=== PATIENT | male | born 2000 | race Caucasian/White ===

== ENCOUNTER 2025-02-17 17:31 | Emergency (ER) | payer OTHER, SELFPAY ==
[2025-02-17 17:42] VITALS: BP 133/92; PULSE 80; RESP 16; TEMP 36.8; O2SAT 98
--- NOTE | 2025-02-17 18:03 | ED.GENADULT ---
HPI - General Adult General Chief complaint: Eye Problems Stated complaint: R eye irritated Time Seen by Provider: 02/17/25 18:04 Source: patient, RN notes reviewed and old records reviewed Mode of arrival: ambulatory Limitations: no limitations History of Present Illness HPI narrative: 24-year-old male presents to the [facility] with a red irritated right eye that was matted shut this morning. No treatment prior to arrival Does not were contact lenses. States that his eyes just feel itchy, no pain. Related Data Allergies Allergy/AdvReac Type Severity Reaction Status Date / Time No Known Allergies Allergy Verified 02/17/25 17:44 Review of Systems Review of Systems: All systems reviewed & are unremarkable except as noted in HPI and below Constitutional: Constitutional: Reports no additional constitutional complaints Eyes: Eyes: Reports as per HPI ENT: Reports system reviewed and no additional complaints, except as documented Cardiovascular: Cardiovascular: Reports no additional cardiovascular complaints, Denies chest pain and Denies dyspnea Respiratory: Respiratory: Reports no additional respiratory complaints, Denies chest congestion, Denies cough and Denies dyspnea Musculoskeletal: Musculoskeletal: Reports no additional musculoskeletal complaints Integumentary/Breasts: Skin/Breast: Reports system reviewed and no additional complaints, except as docu PMFSH Comments At the time of my signature, I reviewed and agree with the nursing past medical, surgical, social, and family history. There is no relevant family history pertinent to the patient complaint. Exam Const: General: cooperative, healthy appearing, comfortable, no acute distress, well developed, alert and well nourished Nutritional Appearance: well nourished Orientation/consciousness: patient oriented x3 Limitations: no limitations HENMT: Head: normal to inspection Ears: hearing grossly normal bilaterally, external ears normal, TM's normal bilaterally, EAC's normal, mastoids normal and no periauricular adenopathy Mouth: Yes Normal oral and palatal mucosa present, Yes lip normal, Yes tongue normal and Yes moist mucous membranes Eyes: General: appearance normal, both eyes and all related structures Alignment and Position: alignment normal Eyelids: eyelid abnormality right lower eyelid lid margins crusty/scaly Conjunctivae: conjunctival abnormality right conjunctival injection and discharge Pupils: Equal, round and reactive pupils present Neck: Neck: normal visual inspection, full ROM, no lymphadenopathy and no meningeal signs Chest: Chest palpation & inspection: normal inspection of the chest Resp: Effort & Inspection: normal respiratory effort and able to speak in complete sentences Auscultation: clear to auscultation bilaterally, no crackles, no rales, no rhonchi and no wheezes Cardio: Rate: regular rate Skin: General skin exam: normal color and no rashes or lesions noted Neuro: General: patient oriented x3, gait normal, moves all extremities and no meningeal signs Cognition (Neuro): normal cognition Speech: normal speech Gait exam (Neuro): Normal gait present Extrem: General: normal to inspection, full ROM, capillary refill normal and normal gait Psych: Appearance: grossly normal and well kempt Mental Status: mental status grossly normal Speech and movement: Normal speech and movement present and Clear speech present Affect: normal affect Attitude: cooperative Course Course Level of Care: Express Care Visit Vital Signs Vital signs: Vital Signs Temperature 98.3 F 02/17/25 17:42 Pulse Rate 80 02/17/25 17:42 Respiratory Rate 16 02/17/25 17:42 Blood Pressure 133/92 H 02/17/25 17:42 Pulse Oximetry 98 02/17/25 17:42 Oxygen Delivery Room Air 02/17/25 17:42 Temperature 98.3 F 02/17/25 17:42 Pulse Rate 80 02/17/25 17:42 Respiratory Rate 16 02/17/25 17:42 Blood Pressure 133/92 H 02/17/25 17:42 Pulse Oximetry 98 02/17/25 17:42 Oxygen Delivery Room Air 02/17/25 17:42 Reviewed Medical Decision Making MDM Narrative Medical decision making narrative: Patient sitting comfortably in exam room. Nontoxic, vitals stable. Patient in no acute distress Patient presents with eye redness since this morning, has gradually increased to some clear discharge. Does not were contacts. No trauma. Describes it as being very itchy. Redness with it injected conjunctiva is noted. Patient is appropriate for outpatient treatment with close follow-up of conjunctivitis Discharge instructions reviewed with patient, as well as provided in writing per nursing staff. The instructions also include specific and strict return/GO TO THE ER as well as f/u information. All questions have been answered, and the patient deny any further questions with discharge and discharge plan. Some parts of this dictation were generated by voice recognition software and may contain typographical and/or grammatical inaccuracies. Differential Diagnosis Differential Diagnosis: Conjunctivitis, allergy, viral, bacterial, Medical Records Medical records reviewed: Yes I reviewed the external patient's medical records. Vital Signs Vital Signs: Vital Signs Temperature 98.3 F 02/17/25 17:42 Pulse Rate 80 02/17/25 17:42 Respiratory Rate 16 02/17/25 17:42 Blood Pressure 133/92 H 02/17/25 17:42 Pulse Oximetry 98 02/17/25 17:42 Oxygen Delivery Room Air 02/17/25 17:42 Temperature 98.3 F 02/17/25 17:42 Pulse Rate 80 02/17/25 17:42 Respiratory Rate 16 02/17/25 17:42 Blood Pressure 133/92 H 02/17/25 17:42 Pulse Oximetry 98 02/17/25 17:42 Oxygen Delivery Room Air 02/17/25 17:42 Reviewed Lab Data Lab results reviewed: Yes I reviewed the patient's lab results. Labs: Reviewed Critical Care Time Critical Care Time Critical Care Time: No Discharge Plan Discharge Clinical Impression: Acute conjunctivitis of right eye Patient Disposition: Home Condition: Stable Instructions: Conjunctivitis (ED) Additional Instructions: Apply a cool, damp compress to your affected eye. Be sure to use a clean cloth each time to avoid spreading the infection. Gently clean your eyes with wet cotton balls or pads to remove crusty buildup or irritating discharge. Use prescription eyedrops as prescribed Maintain good hygiene and only touch your eyes with freshly washed hands. You should follow-up with an eye doctor within the next 72 hours especially if symptoms continue For new or worsening symptoms please proceed to the emergency room [facility]: [place]- [phone] [facility] [phone] [facility] [phone] [place]: [place]- [phone] or [phone] [facility] [phone] [facility] [phone] [facility] [phone] [facility]- [phone] Patient Language: Congolese Prescriptions: New ofloxacin 0.3 % drops See Rx Instructions EACH EYE .COMPLEX Qty: 5 0RF Rx Instructions: put 1-2 drps into affected eye(s) every 2-4 h x 2 days, then 1-2 drps 4 times/day days 3-7 Follow-up/Referrals: UNKNOWN,DOCTOR [Primary Care Provider] Stand Alone Forms: Work/School Release IP Time of Disposition: 18:10
== END 2025-02-17 18:13 | disposition home or self-care (01) ==
PROVIDERS: Emergency Provider Nurse Practitioner
DX: H10.9 Unspecified conjunctivitis (principal)
CPT/HCPCS: 99203; G0463

== ENCOUNTER 2025-02-20 10:15 | Emergency (ER) | payer OTHER, SELFPAY ==
[2025-02-20 10:26] VITALS: BP 126/79; PULSE 65; RESP 16; TEMP 36.6; O2SAT 100
--- NOTE | 2025-02-20 11:05 | ED_ITS ---
HPI - Eye Problem General Chief complaint: Eye Problems Stated complaint: EYE REDNESS Time Seen by Provider: 02/20/25 10:18 Source: patient Mode of arrival: ambulatory Limitations: no limitations History of Present Illness HPI Narrative: Jeet is a 24-year-old male patient presenting to the clinic today with complaints of eye redness. He reports this morning he noticed his eyes were red and he has some discharge. He was seen on Monday and diagnosed with conjunctivitis and prescribed ofloxacin eyedrops. He does were glasses. States he had to call in to PT today and is needing a work note. Denies any eye pain or visual changes. Related Data Allergies Allergy/AdvReac Type Severity Reaction Status Date / Time No Known Allergies Allergy Verified 02/20/25 10:25 Review of Systems Review of Systems: Pertinent positives per HPI. Patient denies any fever, chills, rash, headache, visual changes, dizziness, cough, runny nose, sore throat, shortness of breath, chest pain, palpitations, nausea, vomiting, diarrhea, constipation, abdominal pain, or any urinary issues. PMFSH Comments At the time of my signature, I reviewed and agree with the nursing past medical, surgical, social, and family history. There is no relevant family history pertinent to the patient complaint. Exam Narrative: General: Well-developed, well nourished, in no apparent distress Head: Normocephalic, atraumatic Eyes: Pupils equally round and reactive to light bilaterally, EOM intact, sclera and conjunctive clear, no discharge, lids normal Ears: TMs intact and clear, ear canals clear, no drainage, grossly hearing normal. Nose: Nares patent, no discharge, no inflammation, no sinus tenderness. Mouth: Oropharynx without lesions or masses, good dentition, MMM. Neck: Supple, trachea midline, no enlargement of anterior or posterior cervical nodes, no thyroid masses or goiter palpable. Cardio: Regular rate and rhythm, s1 and s2 normal, no murmur appreciated. Resp: Clear to auscultation bilaterally anteriorly and posteriorly, no rhonchi, rales, wheezing or rubs Course Course Emergency Course: Portions of this record may have been created with voice recognition software. Level of Care: Express Care Visit Vital Signs Vital signs: Vital Signs Temperature 36.6 C 02/20/25 10:26 Pulse Rate 65 02/20/25 10:26 Respiratory Rate 16 02/20/25 10:26 Blood Pressure 126/79 02/20/25 10:26 Pulse Oximetry 100 02/20/25 10:26 Oxygen Delivery Room Air 02/20/25 10:26 Temperature 36.6 C 02/20/25 10:26 Pulse Rate 65 02/20/25 10:26 Respiratory Rate 16 02/20/25 10:26 Blood Pressure 126/79 02/20/25 10:26 Pulse Oximetry 100 02/20/25 10:26 Oxygen Delivery Room Air 02/20/25 10:26 Vital signs reviewed MDM - Eye Problem MDM Narrative Medical decision making narrative: At the time of visit patient is resting comfortably on the exam table. Patient appears to be nontoxic. complaints of eye redness. He reports this morning he noticed his eyes were red and he has some discharge. He was seen on Monday and diagnosed with conjunctivitis and prescribed ofloxacin eyedrops. He does were glasses. States he had to call in to PT today and is needing a work note. Denies any eye pain or visual changes. Patient has normal eye exam in the clinic today. Plan: I suspect patient has bilateral eye irritation. No redness or drainage seen in the clinic today. Continue using ofloxacin eyedrops as prescribed. Work note was given for today. Supportive measures were discussed with the patient and they voiced understanding discharge instructions and agrees to treatment plan. Return precautions reviewed Differential Diagnosis Differential diagnosis: Likely corneal abrasion, conjunctivitis, acute iritis, hyphema, periorbital cellulitis, subconjunctival hemorrhage, glaucoma, corneal ulcer and ruptured globe Discharge Plan Discharge Clinical Impression: Irritation of both eyes Patient Disposition: Home Condition: Stable Instructions: Antibiotic Form Additional Instructions: Continue eyedrops as prescribed Practice good hand washing techniques Avoid touching eyes May use warm moist washcloth to help remove eye discharge If eyes are matted shut-do not pry eyes open-use a warm moist cloth to loosen matting and wipe matter away from eye May take Tylenol/Motrin as needed for pain or fever May take Benadryl as needed for itching Follow-up with your PCP in 3-5 days if symptoms persist or sooner if they worsen Go to the emergency room if you develop any fever that is not controlled by Tylenol or Motrin, loss of vision, eye pain, increase eye swelling,visual changes, headache, confusion, lethargy, weakness, chest pain, or shortness of breath. Patient Language: Malawian Prescriptions: No Action ofloxacin 0.3 % drops See Rx Instructions EACH EYE .COMPLEX Qty: 5 0RF Rx Instructions: put 1-2 drps into affected eye(s) every 2-4 h x 2 days, then 1-2 drps 4 times/day days 3-7 Follow-up/Referrals: Jenae,Korina Carlos APRN [Primary Care Provider, Unknown] Stand Alone Forms: Work/School Release IP Time of Disposition: 10:33 Quality NIHSS Nursing Documentation ED NIHSS nursing documentation: reviewed/agree
== END 2025-02-20 10:36 | disposition home or self-care (01) ==
PROVIDERS: Emergency Provider Nurse Practitioner Family; PCP Nurse Practitioner
DX: H57.89 Other specified disorders of eye and adnexa (principal)
CPT/HCPCS: 99211; G0463

== ENCOUNTER 2025-04-15 11:29 | Emergency (ER) | payer OTHER, SELFPAY ==
[2025-04-15 11:40] VITALS: BP 131/82; PULSE 72; RESP 16; TEMP 36.5; O2SAT 100
--- NOTE | 2025-04-15 11:47 | ED_ITS ---
HPI - Ear Problem General Chief complaint: Ear Stated complaint: Ear Pain Time Seen by Provider: 04/15/25 11:50 Source: patient Mode of arrival: ambulatory Limitations: no limitations History of Present Illness HPI Narrative: Brian is a 25-year-old male patient presenting to the clinic today with complaints of left ear pain and sore throat for the past few days. Denies any fevers, chills, body aches. Has not taken any medications for his symptoms. Denies any chest pain or shortness of breath. No nasal drainage or nasal congestion. States he does have an occasional cough with some phlegm. Related Data Allergies Allergy/AdvReac Type Severity Reaction Status Date / Time No Known Allergies Allergy Verified 04/15/25 11:45 Review of Systems Review of Systems: Pertinent positives per HPI. Patient denies any fever, chills, rash, headache, visual changes, dizziness, cough, shortness of breath, chest pain, palpitations, nausea, vomiting, diarrhea, constipation, abdominal pain, or any urinary issues. PMFSH Comments At the time of my signature, I reviewed and agree with the nursing past medical, surgical, social, and family history. There is no relevant family history pertinent to the patient complaint. Exam Narrative: General: Well-developed, well nourished, in no apparent distress Head: Normocephalic, atraumatic Eyes: Pupils equally round and reactive to light bilaterally, EOM intact, sclera and conjunctive clear, no discharge, lids normal Ears: Right TMs intact and clear, left TM intact, fluid noted behind the TM, mild bulging, ear canals clear, no drainage, grossly hearing normal. Nose: Nares patent, no discharge, no inflammation, no sinus tenderness. Mouth: Oral pharynx red without lesions or masses, good dentition, MMM. Neck: Supple, trachea midline, no enlargement of anterior or posterior cervical nodes, no thyroid masses or goiter palpable. Cardio: Regular rate and rhythm, s1 and s2 normal, no murmur appreciated. Resp: Clear to auscultation bilaterally, no rhonchi, rales, wheezing or rubs Course Course Emergency Course: Portions of this record may have been created with voice recognition software. Level of Care: Express Care Visit Vital Signs Vital signs: Vital Signs Temperature 36.5 C 04/15/25 11:40 Pulse Rate 72 04/15/25 11:40 Respiratory Rate 16 04/15/25 11:40 Blood Pressure 131/82 04/15/25 11:40 Pulse Oximetry 100 04/15/25 11:40 Temperature 36.5 C 04/15/25 11:40 Pulse Rate 72 04/15/25 11:40 Respiratory Rate 16 04/15/25 11:40 Blood Pressure 131/82 04/15/25 11:40 Pulse Oximetry 100 04/15/25 11:40 Vital signs reviewed Medical Decision Making MDM Narrative Medical decision making narrative: At the time of visit patient is resting comfortably on the exam table. Patient appears to be nontoxic. complaints of left ear pain and sore throat for the past few days. Denies any fevers, chills, body aches. Has not taken any medications for his symptoms. Denies any chest pain or shortness of breath. No nasal drainage or nasal congestion. States he does have an occasional cough with some phlegm. On exam patient has bilateral TMs intact, left TM with fluid noted behind the TM, no redness, no nasal drainage, oral pharynx mildly red, lung sounds clear, heart rates regular rate and rhythm. Strep test was ordered. Labs: Strep test was negative in the clinic today. We will send strep for culture. Plan: I suspect patient has left serous otitis and pharyngitis. Prescription for prednisone was sent to the pharmacy. Supportive measures were discussed with the patient and they voiced understanding discharge instructions and agrees to treatment plan. Return precautions reviewed Differential Diagnosis Differential Diagnosis: Otitis media, otitis sternum eustachian tube dysfunction, cerumen impaction, upper respiratory infection, serous otitis, strep pharyngitis Vital Signs Vital Signs: Vital Signs Temperature 36.5 C 04/15/25 11:40 Pulse Rate 72 04/15/25 11:40 Respiratory Rate 16 04/15/25 11:40 Blood Pressure 131/82 04/15/25 11:40 Pulse Oximetry 100 04/15/25 11:40 Temperature 36.5 C 04/15/25 11:40 Pulse Rate 72 04/15/25 11:40 Respiratory Rate 16 04/15/25 11:40 Blood Pressure 131/82 04/15/25 11:40 Pulse Oximetry 100 04/15/25 11:40 Lab Data Labs: Lab Results 04/15/25 Range/Units 12:08 POC Grp A Strep Screen Negative (Negative) Discharge Plan Discharge Clinical Impression: Acute serous otitis media Qualifiers: Laterality: left Recurrence: non-recurrent Qualified Code(s): H65.02 - Acute serous otitis media, left ear Pharyngitis Qualifiers: Pharyngitis/tonsillitis etiology: unspecified etiology Qualified Code(s): J02.9 - Acute pharyngitis, unspecified Patient Disposition: Home Condition: Stable Instructions: Antibiotic Form, Pharyngitis (ED), Fluid In The Ear (Serous Otitis Media) (ED) Additional Instructions: Strep test was negative. We will send strep for culture if this comes back positive we will contact him place you on antibiotics at that time. Take prescription medications only as prescribed-prednisone Increase fluids and stay well hydrated May take Tylenol or motrin as directed on bottle for pain/fever May use Flonase 1 spray in each nare daily May take OTC antihistamines such as Zyrtec or Claritin daily as directed on bottle May apply Vicks vapor rub to chest to open sinuses Sinus rinses for congestion Cepacol spray, cough drops, throat lozenges, warm tea with honey/lemon, gargle salt water to soothe throat BRAT diet for diarrhea Clear liquids x 24 hours then advance as tolerated for nausea/vomiting Go to the ED if you develop a worsening in your condition- high fever not controlled by Tylenol or Motrin, dehydration, weakness, lethargy, shortness of breath, or chest pain. Follow up with your PCP in 3-5 days if symptoms persist. Patient Language: B[place] Prescriptions: New prednisone 20 mg tablet 40 mg PO DAILY 5 Days Qty: 10 0RF No Action ofloxacin 0.3 % drops See Rx Instructions EACH EYE .COMPLEX Qty: 5 0RF Rx Instructions: put 1-2 drps into affected eye(s) every 2-4 h x 2 days, then 1-2 drps 4 times/day days 3-7 Follow-up/Referrals: PHYSICIAN,[employer] [Primary Care Provider, Internal Medicine] Time of Disposition: 12:13 Quality NIHSS Nursing Documentation ED NIHSS nursing documentation: reviewed/agree
[2025-04-15 12:09] LABS: EDSTREPNEGPOS1 Negative (Negative)
== END 2025-04-15 12:23 | disposition home or self-care (01) ==
PROVIDERS: Emergency Provider Nurse Practitioner Family
DX: H65.02 Acute serous otitis media, left ear (principal); J02.9 Acute pharyngitis, unspecified
CPT/HCPCS: 87081; 87880; 99213; G0463